=== PATIENT | female | born 1965 | race Caucasian/White ===

== ENCOUNTER 2019-10-18 18:05 | Emergency (ER) | payer BC ==
--- NOTE | 2019-10-18 18:45 | EDM.PDOC ---
ED HPI GENERAL MEDICAL PROBLEM - General Chief Complaint: ENT Problem Stated Complaint: SORE THROAT Time Seen by Provider: 10/18/19 18:24 Source of Information: Reports: Patient History Limitations: Reports: No Limitations - History of Present Illness INITIAL COMMENTS - FREE TEXT/NARRATIVE: HISTORY AND PHYSICAL: History of present illness: Patient is a 54-year-old female who presents to the ED today with concern of sore throat over the past 4 to 5 days. Patient states that approximately a week ago she began having cold symptoms with runny nose, sore throat, ear pain, and cough. Patient states that all of her symptoms have resolved other than the sore throat. Patient states she has been using [id number] lozenges with mild relief of symptoms. Patient denies any other symptoms or concerns. Patient denies fever, chills, chest pain, shortness of breath, or cough. Denies headache, neck stiff ness, change in vision, syncope, or near syncope. Denies nausea, vomiting, abdominal pain, diarrhea, constipation, or dysuria. Has not noted any blood in urine or stool. Patient has been eating and drinking appropriately. Review of systems: As per history of present illness and below otherwise all systems reviewed and negative. Past medical history: As per history of present illness and as reviewed below otherwise noncontributory. Surgical history: As per history of present illness and as reviewed below otherwise noncontributory. Social history: See social history for further information Family history: As per history of present illness and as reviewed below otherwise noncontributory. Physical exam: General: Patient is alert, oriented, and in no acute distress. Patient sitting comfortably on exam table. HEENT: Atraumatic, normocephalic, pupils equal and reactive bilaterally, negative for conjunctival pallor or scleral icterus, mucous membranes moist, TMs normal bilaterally, throat is mildly erythematous and tonsils without exudate, uvula midline, neck supple, nontender, trachea midline. No drooling or trismus noted. No meningeal signs. No hot potato voice noted. Lungs: Clear to auscultation, breath sounds equal bilaterally, chest nontender. Heart: S1S2, regular rate and rhythm without overt murmur Abdomen: Soft, nondistended, nontender. Negative for masses or hepatosplenomegaly. Negative for costovertebral tenderness. Pelvis: Stable nontender. Genitourinary: Deferred. Rectal: Deferred. Skin: Intact, warm, dry. No lesions or rashes noted. Extremities: Atraumatic, negative for cords or calf pain. Neurovascular unremarkable. Neuro: Awake, alert, oriented. Cranial nerves II through XII unremarkable. Cerebellum unremarkable. Motor and sensory unremarkable throughout. Exam nonfocal. Notes: Discussed importance for follow-up with a primary care provider. Voices understanding and is agreeable to plan of care. Denies any further questions or concerns at this time. Diagnostics: Strep Therapeutics: None Prescription: None Impression: Pharyngitis Plan: 1. Use cough drops and/or other over the counter medications as needed for throat discomfort as discussed. Drink small but frequent sips of fluid to prevent dehydration. 2. Alternate Ibuprofen and Tylenol as directed for pain and discomfort. 3. Follow up with your primary care provider as discussed. 4. Return to the ED as needed and as discussed. Definitive disposition and diagnosis as appropriate pending reevaluation and review of above. throat Pain Score (Numeric/FACES): 6 - Related Data Allergies Allergy/AdvReac Type Severity Reaction Status Date / Time acetaminophen Allergy Hypotension Verified 10/18/19 18:32 [From Tylenol-Codeine #3] celecoxib [From Celebrex] Allergy Hives Verified 10/18/19 18:32 codeine Allergy Hypotension Verified 10/18/19 18:32 [From Tylenol-Codeine #3] Home Meds: Home Meds Cholecalciferol (Vitamin D3) [Vitamin D3] 10/18/19 [History] FLUoxetine HCl [Fluoxetine HCl] 10/18/19 [History] Fexofenadine [Amee] 10/18/19 [History] Lisinopril [Zestril] 10/18/19 [History] traZODone HCl [Trazodone HCl] 10/18/19 [History] Past Medical History Other HEENT History: sinus issues Cardiovascular History: Reports: Hypertension Other Musculoskeletal History: knee repair - Past Surgical History GI Surgical History: Reports: Hernia Repair/Other Other Musculoskeletal Surgeries/Procedures:: fused L3-L5 Social & Family History - Family History Family Medical History: Noncontributory - Tobacco Use Smoking Status *Q: Never Smoker - Recreational Drug Use Recreational Drug Use: No ED ROS GENERAL - Review of Systems Review Of Systems: Comprehensive ROS is negative, except as noted in HPI. ED EXAM, GENERAL - Physical Exam Exam: See Below (see dictation) Course - Vital Signs Last Recorded V/S: Last Vital Signs Temp 97.7 F 10/18/19 18:33 Pulse 84 10/18/19 18:33 Resp 16 10/18/19 18:33 BP 173/110 H 10/18/19 18:33 Pulse Ox 95 10/18/19 18:33 - Orders/Labs/Meds Orders: Active Orders 24 hr Category Date Time Status CULTURE STREP A CONFIRMATION [RM] Stat Lab 10/18/19 18:30 Results STREP SCRN A RAPID W CULT CONF [RM] Stat Lab 10/18/19 18:30 Results Departure - Departure Time of Disposition: 18:58 Disposition: Home, Self-Care 01 Clinical Impression: Pharyngitis Qualifiers: Pharyngitis/tonsillitis etiology: unspecified etiology Qualified Code(s): J02.9 - Acute pharyngitis, unspecified - Discharge Information Referrals: PCP,Not In Area [Primary Care Provider] - Forms: ED Department Discharge Additional Instructions: The following information is given to patients seen in the emergency department who are being discharged to home. This information is to outline your options for follow-up care. We provide all patients seen in our emergency department with a follow-up referral. The need for follow-up, as well as the timing and circumstances, are variable depending upon the specifics of your emergency department visit. If you don't have a primary care physician on staff, we will provide you with a referral. We always advise you to contact your personal physician following an emergency department visit to inform them of the circumstance of the visit and for follow-up with them and/or the need for any referrals to a consulting specialist. The emergency department will also refer you to a specialist when appropriate. This referral assures that you have the opportunity for follow-up care with a specialist. All of these measure are taken in an effort to provide you with optimal care, which includes your follow-up. Under all circumstances we always encourage you to contact your private physician who remains a resource for coordinating your care. When calling for follow-up care, please make the office aware that this follow-up is from your recent emergency room visit. If for any reason you are refused follow-up, please contact the [facility] Emergency Department at and asked to speak to the emergency department charge nurse. KATIE [facility] [address] [place] [address] [facility] [address] [place] [address] 1. Use cough drops and/or other over the counter medications as needed for throat discomfort as discussed. Drink small but frequent sips of fluid to prevent dehydration. 2. Alternate Ibuprofen and Tylenol as directed for pain and discomfort. 3. Follow up with your primary care provider as discussed. 4. Return to the ED as needed and as discussed. Sepsis Event Note - Evaluation Sepsis Screening Result: No Definite Risk - Focused Exam Vital Signs: Vital Signs Temp Pulse Resp BP Pulse Ox 10/18/19 18:33 97.7 F 84 16 173/110 H 95 Date Exam was Performed: 10/18/19 Time Exam was Performed: 18:58 - My Orders Last 24 Hours: My Active Orders 10/18/19 18:30 CULTURE STREP A CONFIRMATION [RM] Stat STREP SCRN A RAPID W CULT CONF [RM] Stat - Assessment/Plan Last 24 Hours: My Active Orders 10/18/19 18:30 CULTURE STREP A CONFIRMATION [RM] Stat STREP SCRN A RAPID W CULT CONF [RM] Stat
== END 2019-10-18 19:08 | disposition home or self-care (01) ==
LOC: MW.ED 18:05
DX: J02.9 Acute pharyngitis, unspecified (principal); I10 Essential (primary) hypertension; Z88.6 Allergy status to analgesic agent; Z88.5 Allergy status to narcotic agent; Z79.899 Other long term (current) drug therapy
CPT/HCPCS: 87081; 87880-QW; 99282; 99283